=== PATIENT | male | born 2000 | race American Indian/Alaskan Native ===

== ENCOUNTER 2020-12-07 17:15 | Emergency (ER) | payer SELFPAY ==
--- NOTE | 2020-12-07 17:42 | Emergency Department Report ---
Chief Complaint: Urogenital-Male Stated Complaint: GROIN PAIN Time Seen by Provider: 12/07/20 17:41 - HPI History of Present Illness: Patient is a 20-year-old male presents emergency room complaints of dysuria that began 4 days ago. He denies any pain or swelling in the testicles, abdominal pain, fever, nausea, vomiting, diarrhea, hematuria, urinary retention, pain or swelling in the testicles. No past medical history. No allergies to medications. Vitals are stable [employer] jeanette Richey : Normal testicular lie, no inguinal tender palpation or masses or hernias, no scrotal edema, no testicular tenderness palpation, no edema or tenderness palpation of the epididymal region, no obvious lesions or blisters, no abdominal tenderness palpation, no guarding, no rigidity, normal bowel sounds Patient is presenting with symptoms most likely consistent with STD He denies any pain or swelling in the testicles, abdominal pain, fever, nausea, vomiting, diarrhea, hematuria, urinary retention, pain or swelling in the testicles. No abnormality on chaperoned exam This hospital policy does not test or treat uncomplicated male STDs pt given the appropriate resources advised pt Please follow-up with the clinic or the health department to have a full STD panel. Please have any partner tested and treated as well. Avoid sexual intercourse. Return to emergency room for new or worsening symptoms. MSE screening note: Focused history and physical exam performed. ED Disposition for MSE Clinical Impression: Concern about STD in male without diagnosis Disposition: Z-07 MED SCREENING EXAM-LEFT Is pt being admited?: No Does the pt Need Aspirin: No Condition: Stable Instructions: Safe Sex Additional Instructions: Please follow-up with the clinic or the health department to have a full STD panel. Please have any partner tested and treated as well. Avoid sexual intercourse. Return to emergency room for new or worsening symptoms. walk in clinic: [facility] Address: [address] [place] [id number] Referrals: [facility] [Provider Group] - 2-3 Days [facility] [Outside] - 2-3 Days Time of Disposition: 17:41 Print Language: IRISH
[2020-12-07 17:56] VITALS: BP 122/83
== END 2020-12-07 17:45 | disposition left against medical advice (07) ==
LOC: ED 17:15
DX: R10.9 Unspecified abdominal pain (principal); Z53.21 Procedure and treatment not carried out due to patient leaving prior to being seen by health care provider